=== PATIENT | male | born 1965 ===

== ENCOUNTER → 2016-06-25 | Day surgery (SDC) | payer OTHER ==
[~2016-06-25] MED LIST: FENTANYL PF 100 MCG/2 ML VIAL. IV PRN; HYDR25SU18 RC; HYDROMORPHONE 2 MG/ML VIAL. IV PRN; IV RINGERS,LACTATED 1000ML 1,000 ML IV SCH; LIDOCAINE 1% 1 ML SYRINGE. ID PRN; LIDOCAINE 2% PF Vial for OR 5 ML VIAL. ONE; MORPHINE SULFATE 2 MG/ML DISP.SYRIN. IV PRN; ONDANSETRON PF 4 MG/2 ML VIAL. IV PRN; PROCHLORPERAZINE 10 MG/2 ML VIAL. IV PRN; PROPOFOL 20 ML IV ONE; PROPOFOL 40 ML IV ONE
[2016-06-25 09:52] VITALS: BP 97/75
--- NOTE | 2016-06-26 15:25 | CONS ---
DATE OF CONSULTATION: REASON FOR CONSULTATION: Rectal bleeding. HISTORY OF PRESENT ILLNESS: A 51-year-old -[place] male with past medical history significant for tobaccoism. He had intermittent rectal bleeding for the past year. He also has some left lower quadrant pain and constipation. Weight and appetite have been stable. FAMILY HISTORY: unrevealing for colon polyps or colon cancer. He, otherwise, has been in good health without additional complaints. PAST MEDICAL HISTORY: Rectal bleeding. History of tobaccoism. ALLERGIES: None. MEDICATIONS: Anusol suppositories nightly. SOCIAL HISTORY: He was incarcerated. Does not drink or smoke at this time. FAMILY HISTORY: Noncontributory. REVIEW OF SYSTEMS: Negative for 14-point track. PHYSICAL EXAMINATION: GENERAL: Reveals a thin -[place]anish male who is alert, cooperative, and in no acute distress. VITAL SIGNS: Temperature 98.5, pulse 70, and respirations 20. HEENT: Normocephalic and atraumatic head. Pupils and extraocular muscles not tested. Sclerae anicteric. NECK: Supple. LUNGS: Clear. CARDIOVASCULAR: Reveals an S1, S2 without S3, S4 or appreciable murmur. ABDOMEN: Reveals soft abdomen, normal bowel sounds without appreciable hepatosplenomegaly. EXTREMITIES: Reveals no cyanosis, clubbing, or edema. IMPRESSION: Rectal bleeding. Etiology is to return with constipation. Differential includes inflammatory bowel disease, hemorrhoids, colon polyps, colon cancer, and AVMs. Therefore, recommend colonoscopy to further assess. Risks and benefits of the procedure have been discussed with the patient including the risk of perforation who is willing to proceed at this time. I would like to thank ____ for allowing us to consult and participate in this patient's care. EMILIE ANN MD DR: ROSIE/trevon JOB#: [id number] / [id number]
--- NOTE | 2016-06-26 16:38 | PATHOLOGY ---
PATHOLOGY REPORT * * * * * * * * FINAL DIAGNOSIS: Colorectal biopsies, rectal cancer polyp: - Tubulovillous adenoma with high-grade dysplasia. See comment. COMMENT: Sections of the rectal cancer polyp biopsy reveal multiple fragments of tubulovillous adenoma showing high-grade dysplasia. The stroma of the polyp fragments shows acute and chronic inflammation. While we suspect that there is an invasive carcinoma, I cannot render a definitive diagnosis of invasive adenocarcinoma in the polyp fragments which are present. The case is also examined by Dr. Gamez, who concurs with the diagnosis. (JPM:; d/t: 06/26/16) REPORT ELECTRONICALLY SIGNED BY: Vladislav Yanes M.D. DATE/TIME: 06/26/2016 16:38 * * * * * * * * GROSS PATHOLOGY: Received in formalin labeled "Maximiliano Boothe, rectal cancer polyp biopsy," are 9 segments of mosqueda soft tissue measuring 0.7 x 0.5 x 0.2 cm in aggregate dimensions and ranging from 0.2 to 0.4 cm in maximum dimension. The specimen is submitted entirely in cassette A1. (KAH; 06/25/2016) INITIAL CPT CODE(S): A; 76774 Professional services [place] [address] Technical services performed by [facility] at [address] [place] [address], [facility] [address] [address]. [facility] SPECIMEN(S) RECEIVED: A.Rectal cancer polyp biopsy CLINICAL HISTORY: GI bleed PATIENT: MAXIMILIANO BOOTHE /AGE: 1103/31/1965 (Age: 51) PATIENT #: [id number] ALT CASE #: SPECIMEN COLLECTION DATE: 06/25/2016 SPECIMEN RECEIVED DATE: 06/25/2016 [facility] - [address] [place] [address] - PHONE: [phone] * * * END OF REPORT * * *
== END | disposition home or self-care (01) ==
LOC: ENDOS 08:01 → EEVIPCON 09:00
PROVIDERS: ATTEND Internal Medicine Gastroenterology
DX: C20 Malignant neoplasm of rectum (principal); K64.1 Second degree hemorrhoids
CPT/HCPCS: 45380; 88305; J2704

== ENCOUNTER → 2016-09-29 | Outpatient (CLI) | payer OTHER ==
[2016-06-25 09:52] VITALS: BP 97/75
[~2016-09-29] MED LIST changes: +BISA5TAB76 PO; +DOCU-27 PO; -FENTANYL PF 100 MCG/2 ML VIAL. IV PRN; +GADOBUTROL 7.5 MMOL/7.5 ML VIAL IV ONE; -HYDROMORPHONE 2 MG/ML VIAL. IV PRN; +IOHEXOL 300 MG/ML 75 ML VIAL IV ONE; -IV RINGERS,LACTATED 1000ML 1,000 ML IV SCH; -LIDOCAINE 1% 1 ML SYRINGE. ID PRN; -LIDOCAINE 2% PF Vial for OR 5 ML VIAL. ONE; -MORPHINE SULFATE 2 MG/ML DISP.SYRIN. IV PRN; -ONDANSETRON PF 4 MG/2 ML VIAL. IV PRN; -PROCHLORPERAZINE 10 MG/2 ML VIAL. IV PRN; -PROPOFOL 20 ML IV ONE; -PROPOFOL 40 ML IV ONE; +SIME80TA14 PO
--- NOTE | 2016-09-29 10:50 | RAD ---
Indication rectal malignancy. Staging. 75 cc of Omnipaque 300 was administered intravenously. No prior imaging of the chest is available. There is a 11 mm hypervascular mass in the right lobe of the liver. This is likely incidental but not completely characterized on this exam. It probably represents an hemangioma. There is a low-density 4 mm mass in the left lobe of the liver with features most compatible with an incidental small cyst. A similar small mass also likely reflecting a cyst is seen in the right lobe. A definite significant finding in the liver or upper abdomen is not seen. The thoracic aorta appears unremarkable. There is no significant hilar or mediastinal adenopathy. An acute finding in the chest is not seen. A dominant parenchymal mass in either lung is not apparent. There is no definite evidence of metastatic disease to the chest. IMPRESSION: Unremarkable CT imaging of the chest. Hepatic findings probably incidental. See above discussion. PQRS Compliance Statement: One or more of the following individualized dose reduction techniques were utilized for this examination: 1. Automated exposure control 2. Adjustment of the mA and/or kV according to patient size 3. Use of iterative reconstruction technique
--- NOTE | 2016-09-29 13:10 | RAD ---
MR of the liver with and without contrast, 09/29/2016: History: Rectal cancer, abnormal CT study Imaging was performed in axial and coronal planes utilizing a variety of imaging sequences including T2 weighted, fat suppressed T2 weighted and opposed phase gradient echo sequences. Fat-suppressed T1-weighted dynamic scans were also obtained following an IV bolus injection of 7.5 cc of the Gadavist contrast agent. There is an 11 mm lesion in the posterior aspect of the superior portion of the right lobe of liver. It demonstrates decreased signal on the T1-weighted sequence and increased signal on the T2-weighted sequence. The dynamic postcontrast scans show prompt enhancement with a signal intensity similar to the vascular pool on all the subsequent postcontrast images. It does not demonstrate peripheral nodular enhancement and gradual central fill-in of a classic hemangioma. This may represent a "flash fill" hemangioma, although a hepatocellular carcinoma or hypervascular metastasis cannot be entirely excluded. There are several small subcentimeter foci in the liver which demonstrate increased signal on the T2-weighted sequences and no postcontrast enhancement. These features are typical of small cysts. These include a 5-6 mm cyst in the anterior aspect of the left lobe and a 7 mm cyst in the lateral aspect of the right lobe of the liver. A couple of other tiny presumed cysts are also noted. No other hepatic lesion is identified. The bile ducts are unremarkable. No gallbladder abnormality is seen. IMPRESSION: 1. Multiple tiny hepatic cysts. 2. A small hypervascular lesion in the superior aspect of the right lobe of liver is probably an atypical hemangioma, although a neoplastic etiology such as a hepatocellular carcinoma or hypervascular metastasis cannot be entirely excluded. CT or MR follow-up is suggested.
== END | disposition home or self-care (01) ==
LOC: EEVIPCON 10:00 → CT 10:52
PROVIDERS: ATTEND Specialist
DX: C20 Malignant neoplasm of rectum (principal)
CPT/HCPCS: 71260; 74183; Q9967